=== PATIENT | male | born 1990 | race Caucasian/White ===

== ENCOUNTER 2016-06-17 02:02 | Emergency (ER) | payer BC ==
[~2016-06-17] VITALS: Ht 180.3 cm; Wt 97.0 kg
[~2016-06-17 02:02] MED LIST: NO HOME MEDS; PENICILLN VK500 MG OR; ROBITUSSIN200 MG/10 PO; THERAFL1 OR; TYLENOL & COD12.5 ML OR; ZPAK PO
[2016-06-17] MEDS ORDERED: ZITHROMAX250 MG PO (07:51)
[2016-06-17 08:02] VITALS: BP 124/81
== END 2016-06-17 08:08 | disposition home or self-care (01) | DRG 153 ==
LOC: ED 02:02
DX: J06.9 Acute upper respiratory infection, unspecified (principal); F17.210 Nicotine dependence, cigarettes, uncomplicated; R05 Cough; R09.81 Nasal congestion

== ENCOUNTER 2017-06-10 00:34 | Emergency (ER) | payer SELFPAY ==
[~2017-06-10] VITALS: Ht 180.3 cm; Wt 104.0 kg
[~2017-06-10 00:34] MED LIST changes: +ZITHROMAX250 MG PO
[2017-06-10] MEDS ORDERED: KLONOPIN1 MG PO (00:43)
[2017-06-10 01:12] LABS: INFLUENZA A NONE DETECTED (NONE DETECT); INFLUENZA B NONE DETECTED (NONE DETECT)
[2017-06-10] MEDS ORDERED: ZITHROMAX250 MG PO (01:22)
[2017-06-10 01:35] VITALS: BP 138/88
== END 2017-06-10 01:35 | disposition home or self-care (01) | DRG 153 ==
LOC: ED 00:34
PROVIDERS: Emergency Medicine
DX: J06.9 Acute upper respiratory infection, unspecified (principal); F17.210 Nicotine dependence, cigarettes, uncomplicated; R05 Cough; R53.81 Other malaise

== ENCOUNTER 2018-02-05 11:17 | Emergency (ER) | payer SELFPAY ==
[~2018-02-05] VITALS: Ht 180.3 cm; Wt 105.0 kg
[~2018-02-05 11:17] MED LIST changes: +KLONOPIN1 MG PO
[2018-02-05] MEDS ORDERED: ZOFRAN ODT4 MG PO (11:35)
[2018-02-05] MEDS ORDERED: TAM75CAP PO (11:35)
[2018-02-05 11:47] VITALS: BP 123/73
[2018-02-05 12:08] LABS: INFLUENZA A NONE DETECTED (NONE DETECT); INFLUENZA B NONE DETECTED (NONE DETECT)
== END 2018-02-05 11:47 | disposition home or self-care (01) | DRG 153 ==
LOC: ED 11:17
PROVIDERS: Family Medicine
DX: J11.1 Influenza due to unidentified influenza virus with other respiratory manifestations (principal); F41.9 Anxiety disorder, unspecified; F17.210 Nicotine dependence, cigarettes, uncomplicated

== ENCOUNTER 2020-01-04 12:23 | Emergency (ER) | payer SELFPAY ==
[~2020-01-04] VITALS: Ht 180.3 cm; Wt 108.0 kg
[~2020-01-04 12:23] MED LIST changes: +TAM75CAP PO; +ZOFRAN ODT4 MG PO
[2020-01-04] MEDS ORDERED: ALL DAY10 MG PO (13:15)
[2020-01-04] MEDS ORDERED: MOTRIN400 MG PO (13:15)
[2020-01-04] MEDS ORDERED: CYCLOBENZAPR5 MG PO (13:15)
[2020-01-04] MEDS ORDERED: FLONASE AL50 MCG/ACT (13:15)
[2020-01-04 13:30] VITALS: BP 119/59
== END 2020-01-04 14:05 | disposition home or self-care (01) | DRG 552 ==
LOC: ED 12:23
DX: S16.1XXA Strain of muscle, fascia and tendon at neck level, initial encounter (principal); F17.200 Nicotine dependence, unspecified, uncomplicated; V90.0 Drowning and submersion due to watercraft overturning; T78.40XA Allergy, unspecified, initial encounter

== ENCOUNTER 2020-10-13 15:04 | Emergency (ER) | payer OTHER ==
[~2020-10-13] VITALS: Ht 180.3 cm; Wt 111.0 kg
[~2020-10-13 15:04] MED LIST changes: +ALL DAY10 MG PO; +CYCLOBENZAPR5 MG PO; +FLONASE AL50 MCG/ACT; +MOTRIN400 MG PO
[2020-10-13 16:58] VITALS: BP 134/76
[2020-10-13] MEDS ORDERED: CYCLOBENZAPRINE10 MG PO (16:59)
== END 2020-10-13 17:08 | disposition home or self-care (01) ==
LOC: ED 15:04
DX: S39.012A Strain of muscle, fascia and tendon of lower back, initial encounter (principal); F41.9 Anxiety disorder, unspecified; F17.210 Nicotine dependence, cigarettes, uncomplicated; X50.0XXA Overexertion from strenuous movement or load, initial encounter; Y93.E9 Activity, other interior property and clothing maintenance; Y92.008 Other place in unspecified non-institutional (private) residence as the place of occurrence of the external cause

== ENCOUNTER 2023-03-27 11:55 | Emergency (ER) | payer SELFPAY ==
[~2023-03-27] VITALS: Ht 180.3 cm; Wt 83.0 kg
[~2023-03-27 11:55] MED LIST changes: +CYCLOBENZAPRINE10 MG PO
[2023-03-27 12:38] VITALS: BP 123/80
[2023-03-27] MEDS ORDERED: DOXYCYCLINE HY100 MG PO (13:10)
== END 2023-03-27 13:20 | disposition home or self-care (01) | DRG 153 ==
LOC: ED 11:55
DX: J32.9 Chronic sinusitis, unspecified (principal)